=== PATIENT | female | born 1990 | race African-American/Black ===

== ENCOUNTER 2016-10-24 09:06 | Emergency (ER) | payer MEDICAID ==
[~2016-10-24] VITALS: Ht 157.5 cm; Wt 82.6 kg
[~2016-10-24 09:06] MED LIST: CEFD300C37 PO
[2016-10-24 09:09] VITALS: BP 116/81
== END 2016-10-24 09:48 | disposition home or self-care (01) ==
LOC: ED 09:35
DX: J30.1 Allergic rhinitis due to pollen (principal)
CPT/HCPCS: 99283

== ENCOUNTER 2016-12-31 01:14 | Emergency (ER) | payer MEDICAID ==
[~2016-12-31] VITALS: Ht 160 cm; Wt 79.4 kg
[2016-12-31] MEDS ORDERED: FAMOTIDINE 20 MG/2 ML IVP ONE (01:30)
[2016-12-31] MEDS ORDERED: ONDANSETRON 2MG/ML, 2ML IVPush ONE (01:30)
[2016-12-31] MEDS ORDERED: MORPHINE SULFATE 4 MG/ML, 1ML IVPush PRN (01:30)
[2016-12-31] MEDS ORDERED: SODIUM CHLORIDE 0.9% 1,000ML IVBOLUS ONE (01:30)
[2016-12-31] MEDS ORDERED: ONDANSETRON 2MG/ML, 2ML ONE (01:43)
[2016-12-31] MEDS ORDERED: MORPHINE SULFATE 4 MG/ML, 1ML ONE (01:43)
[2016-12-31] MEDS ORDERED: FAMOTIDINE 20 MG/2 ML ONE (01:43)
[2016-12-31 01:58] LABS: BLOOD UREA NITROGEN 11 mg/dL (7-18)
[2016-12-31 02:04] LABS: ASPARTATE AMINO TRANSFERASE 15 U/L (15-37)
[2016-12-31 03:12] VITALS: BP 122/84
== END 2016-12-31 03:15 | disposition home or self-care (01) ==
LOC: ED 03:12
DX: R10.84 Generalized abdominal pain (principal); E07.9 Disorder of thyroid, unspecified
CPT/HCPCS: 36415; 80053; 81003; 83690; 84703; 85025; 96361; 96374; 96375; 99284; J2405; J7030; S0028

== ENCOUNTER 2018-02-04 10:10 | Emergency (ER) | payer MEDICAID ==
[~2018-02-04] VITALS: Ht 154.9 cm; Wt 80.6 kg
[2018-02-04 10:26] VITALS: BP 115/79
== END 2018-02-04 11:09 | disposition home or self-care (01) ==
LOC: ED 11:03
DX: J18.0 Bronchopneumonia, unspecified organism (principal)
CPT/HCPCS: 71046; 99284

== ENCOUNTER 2018-10-04 16:36 | Emergency (ER) | payer MEDICAID ==
[~2018-10-04] VITALS: Ht 149.9 cm; Wt 86.6 kg
[2018-10-04 17:06] LABS: HCG UR SG 1.035 (1.003-1.030); MICROSCOPIC AUTO
[2018-10-04 17:18] LABS: CULTURE INDICATED? YES
--- NOTE | 2018-10-04 17:33 | NUR ---
Pt to 24 from lobby
--- NOTE | 2018-10-04 17:36 | NUR ---
SPOKE TO PIT PROVIDER REGARDING +HCG. NO NEW ORDERS RECEIVED.
--- NOTE | 2018-10-04 17:41 | NUR ---
FIRST CONTACT WITH PT. PT AMBULATORY ABOUT ROOM. NAD NOTED. PT REPORTS "I'M PEEING EVERY TWO SECONDS", LMP 08/31. . PT DENIES N/V/FLANK PAIN/FEVER. TACHYCARDIC ON MONITOR, HR 120'S. "I'M JUST NERVOUS", PT AFEBRILE. DENIES RECENT STIMULANT USE.
--- NOTE | 2018-10-04 18:16 | NUR ---
BREAK RN: RECEIVED BEDSIDE REPORT FROM LULI LANDERS
--- NOTE | 2018-10-04 18:26 | NUR ---
Hunter sutton in ED - 10/04/18 at 1826 by ELIZABETH FIRST CONTACT WITH PT. Patient/Caregiver given discharge instructions and they have confirmed that they understand the instructions. Patient CARRIED OUT BY MOTHER. PT LEFT WITH ALL PERSONAL BELONGINGS.
--- NOTE | 2018-10-04 18:45 | NUR ---
FIRST CONTACT WITH PATIENT. Patient/Caregiver given discharge instructions and they have confirmed that they understand the instructions. Patient ambulatory with steady gait. PT LEFT WITH ALL PERSONAL BELONGINGS.
[2018-10-04 18:46] VITALS: BP 148/82
== END 2018-10-04 18:52 | disposition home or self-care (01) ==
LOC: ED 18:31
DX: O23.41 Unspecified infection of urinary tract in pregnancy, first trimester (principal); R31.9 Hematuria, unspecified
CPT/HCPCS: 81001; 81025; 87077; 87086; 87186; 99283